=== PATIENT | female | born 1980 | race Caucasian/White ===

== ENCOUNTER → 2017-10-09 | Outpatient (CLI) | payer OTHER ==
--- NOTE | 2017-10-09 12:53 | EKG ---
FACILITY: [facility] [place] PATIENT NAME: GOGO GORDON : [id number] MR: [id number]: [id number] EXAM DATE: ORDERING PHYSICIAN: MARISSA GUZMAN TECHNOLOGIST: ANAYA Test Reason : MED MANAGEMENT Blood Pressure : / mmHG Vent. Rate : 088 BPM Atrial Rate : 088 BPM P-R Int : 152 ms QRS Dur : 080 ms QT Int : 378 ms P-R-T Axes : 071 075 054 degrees QTc Int : 457 ms Normal sinus rhythm Abrupt R V3 probably due to lead placement. No previous ECGs available Confirmed by ROMAIN DUMAS ([id number] on 10/09/2017 8:44:05 PM Referred By: Confirmed By:ROMAIN DUMAS
== END ==
LOC: RESP 12:37
PROVIDERS: ATTEND Nurse Practitioner Psychiatric/Mental Health
DX: Z79.899 Other long term (current) drug therapy (principal)
CPT/HCPCS: 93005

== ENCOUNTER 2018-07-04 15:55 | Outpatient (CLI) | payer OTHER ==
[~2018-07-04] VITALS: Ht 163.8 cm; Wt 67.1 kg
[2018-07-04] MEDS ORDERED: DOCU100C49 PO (16:35)
[2018-07-04] MEDS ORDERED: ZOLP-350 PO (16:35)
[2018-07-04] MEDS ORDERED: ONDANSETRON 4 MG/2 ML VIAL IV PRN (16:35)
[2018-07-04] MEDS ORDERED: TERBUTALINE SULF 1 MG/ML VIAL SC PRN (16:35)
[2018-07-04] MEDS ORDERED: PREN1TAB50 PO (16:35)
[2018-07-04] MEDS ORDERED: BUPR-474 PO (16:35)
[2018-07-04] MEDS ORDERED: METH10 PO (16:35)
[2018-07-04] MEDS ORDERED: ACETAMINOPHEN 325 MG TAB PO PRN (16:35)
--- NOTE | 2018-07-04 16:46 | History & Physical ---
History of Present Illness Age of Patient: 38 : 1 Para or TPAL: 0 Estimated Gestational Age: 34.2 Chief Complaint Back pain. History of Present Illness Reports 2 days of intermittent low back pain and worse today making it difficult to sit down. Pt has a history of restless leg syndrome and has been seeing a specialist at [facility], treating this condition with methadone. She has not been able to wean off. She had a visit with [facility] during the to assess risks due to the methadone use and withdraw syndrome. It was decided that she would deliver in [place]. Currently denies LOF, vaginal bleeding, abnormal discharge or pain with urination. She has been constipated from the methadone use requiring MOM and enema to produce a small BM. Past Medical, Surgical, Family and Obstetric Histories reviewed. Please see ACOG chart. Med Rec Home Meds Reported Medications Docusate Sodium (STOOL SOFTENER) 100 Mg Capsule, 200 MG PO DAILY, CAPSULE 07/04/18 Vit #76/Iron,Carb/FA (Pnv 29-1 Tablet) 1 Each Tablet, 1 TAB PO DAILY 07/04/18 Bupropion Hcl (WELLBUTRIN XL) 300 Mg Tab.er.24h, 300 MG PO QDAY, TAB 07/04/18 Zolpidem Tartrate (AMBIEN) 10 Mg Tablet, 1 TAB PO QHS, TAB 07/04/18 Methadone Hcl (METHADONE HCL) 10 Mg Tab, 10-15 MG PO HS, TAB 07/04/18 Review of Systems All Systems Reviewed/Normal: Yes, Except as Noted Other as per HPI Exam General Exam General Apperance: Alert/Awake/No Acute Distress Neuro: No Gross deficits Eyes: Normal Extraocular Movement & Vison Cardiovascular: Regular Rate and Rhythm Respiratory: No Respiratory Distress Abdomen: Soft, Non-Tender, Non-Distended, Gravid - Non-Tender Integumentary: Skin Intact without Lesions or Rash Psychological: Alert & Oriented X3, Appropriate Mood & Affect Cervical Dialation: 0.5 Cervical Effacement (%): 0 Cervical Consistency: Soft Cervical Position: Posterior Station: -3 Presentation: Vertex Uterine Contractions(Q min): 3 Fetus Heart Tone Variabilty: Moderate FHT Accelerations: 15X15 FHT Category: I Medical Decision Making VTE Prophylasis: Adult Deep Vein Thrombosis/Pulmonary: No Pharmacological Contraindicati: Pt at Low Risk for VTE Mechanical Contraindications: Pt at Low Risk for VTE Assessment and Plan Problems: (1) Threatened labor Assessment & Plan: Will give steroids for lung maturity. IVFs and tocolytics. If progresses towards delivery, will ship to [place]. Problem Qualifiers (1) Threatened labor: Trimester: third trimester Qualified Codes: O47.03 - False labor before 37 completed weeks of gestation, third trimester YENY NORTH MD Jul 04, 2018 16:46
[2018-07-04 17:00] VITALS: BP 139/89; Ht 163.8 cm; Wt 67.1 kg
[2018-07-04] MEDS: LR(*) 1000 ML BAG 1,000 ML IV PRN ×2 (17:00→18:48)
[2018-07-04] MEDS ORDERED: BETAMETHASONE/ACETATE 6 MG/1ML IM SCH (17:00)
[2018-07-04 17:19] LABS: PLATELET COUNT, AUTOMATED 277 K/uL (150-450)
[2018-07-04] MEDS ORDERED: MAGNESIUM SULF 20 GM/500 ML IV 500 ML IV SCH (17:58)
[2018-07-04] MEDS ORDERED: MAGNESIUM SUL* 4 GM/100 ML BAG 100 ML IVPB ONE (18:00)
[2018-07-04] MEDS ORDERED: MAGNESIUM SUL* 2 GM/50 ML IVPB 50 ML IVPB ONE (18:00)
[2018-07-04] MEDS ORDERED: NIFEdipine 10 MG CAP PO SCH ×2 (18:00)
[2018-07-04] MEDS ORDERED: METHADONE 10 MG TAB PO SCH (21:00)
== END 2018-07-04 20:40 | disposition home or self-care (01) ==
LOC: L&D 15:55 → OB 15:55 → UNDOADMIN 15:55 → OB 15:55 → L&D 20:40 → UNDODISIN 20:40 → EDSTATUS 07-13 07:31
PROVIDERS: ATTEND Obstetrics & Gynecology
DX: O47.03 False labor before 37 completed weeks of gestation, third trimester (principal); Z3A.34 34 weeks gestation of pregnancy
CPT/HCPCS: 59025; 81001; 84112; 85025; 99213; J0702; J3105; J7120

== ENCOUNTER → 2018-07-16 | Outpatient (CLI) | payer OTHER ==
[2018-07-04 17:00] VITALS: BMI 25.0
[~2018-07-16] MED LIST: BUPR-474 PO; DEXTROSE 5%(*) 100 ML BAG 100 ML IVPB PRN; DOCU100C49 PO; FERRIC CARBOXY IVP ONE; LIDOCAINE/SOD BICARB 8.4% SYR ID PRN; METH10 PO; NS 0.9% IVP ONE; NS(*) 0.9% 100 ML BAG 100 ML IVPB PRN; PREN1TAB50 PO; ZOLP-350 PO
[2018-07-16 09:01] VITALS: BP 117/74
[2018-07-16 09:32] VITALS: BP 116/75
== END ==
LOC: SPU 07:44
DX: G25.81 Restless legs syndrome (principal)
CPT/HCPCS: 96365; J1439; J7050